=== PATIENT | female | born 1995 | race Caucasian/White ===

== ENCOUNTER → 2021-09-10 | Outpatient (CLI) | payer BC | END | disposition home or self-care (01) | LOC: LABWHC1 09:20 | PROVIDERS: ATTEND Obstetrics & Gynecology | DX: O20.0 Threatened abortion (principal); Z3A.00 Weeks of gestation of pregnancy not specified | CPT/HCPCS: 36415; 84702; 86850; 86900; 86901 ==

== ENCOUNTER → 2021-09-12 | Outpatient (CLI) | payer BC | END | disposition home or self-care (01) | LOC: LABWHC1 08:22 | PROVIDERS: ATTEND Obstetrics & Gynecology | DX: O20.0 Threatened abortion (principal); Z3A.00 Weeks of gestation of pregnancy not specified | CPT/HCPCS: 36415; 84702 ==

== ENCOUNTER → 2021-09-15 | Outpatient (CLI) | payer BC | END | disposition home or self-care (01) | LOC: LABWHC1 15:49 | PROVIDERS: ATTEND Obstetrics & Gynecology | DX: O02.1 Missed abortion (principal); Z3A.00 Weeks of gestation of pregnancy not specified | CPT/HCPCS: 36415; 84702 ==

== ENCOUNTER → 2021-12-08 | Outpatient (CLI) | payer BC ==
[2021-12-08 15:08] LABS: Basophils # (A) 0.03 X 10*3/uL (0.00-0.10); Basophils % (A) 0.4 %; Eosinophils # (A) 0.15 X 10*3/uL (0.04-0.35); Eosinophils % (A) 2.1 %; HGB 13.8 g/dL (12.0-15.0); Immature Grans, Automated 0.1 %; Lymphocytes # (A) 2.42 X 10*3/uL (0.90-5.00); Lymphocytes % (A) 34.6 %; MCH 28.5 pg (27.0-32.0); MCHC 32.9 g/dL (32.0-37.0); MCV 86.8 fL (80.0-97.0); Mean Platelet Volume 10.6 fL (9.5-12.2); Monocytes # (A) 0.45 X 10*3/uL (0.20-1.00); Monocytes % (A) 6.4 %; NRBC Per 100 WBC 0 /100 WBCS (0.0-0.0); Neutrophils # (A) 3.94 X 10*3/uL (1.80-7.70); Neutrophils % (A) 56.4 %; Platelet Count 285 X 10*3/uL (140-440); RBC 4.84 X 10*6/uL (4.10-5.20); RDW 12.2 % (11.5-14.5)
== END | disposition home or self-care (01) ==
LOC: LABPAT 10:42
PROVIDERS: ATTEND Obstetrics & Gynecology
DX: Z01.812 Encounter for preprocedural laboratory examination (principal); O02.1 Missed abortion; Z3A.00 Weeks of gestation of pregnancy not specified
CPT/HCPCS: 85025

== ENCOUNTER 2021-12-09 05:53 | Day surgery (SDC) | payer BC ==
[2021-12-05 09:59] VITALS: BMI 43.0
[~2021-12-09 05:53] MED LIST: DEXAMETHASONE SOD PHOSPHATE 4 MG/ML 1 ML VIAL IV ONE; LACTATED RINGERS 1,000 ML IV SCH; LIDOCAINE 1% (10MG/ML) FOR IV START INTRADERMA PRN; MIDAZOLAM 2 MG/2 ML VIAL IV PRN; ONDANSETRON 4 MG/2 ML VIAL IVP ONE; Pre Op ABX Message 1 EACH MISC MISCELLANE ONE
[2021-12-09] MEDS ORDERED: FAMOTIDINE 20 MG/2 ML VIAL IV ONE (06:43)
[2021-12-09] MEDS ORDERED: SCOPOLAMINE 1 MG/72 HR PATCH TRANSDERM ONE (06:45)
[2021-12-09] MEDS ORDERED: LIDOCAINE 2% INJ 20 MG/ML (2 ML VIAL) ONE (07:00)
[2021-12-09] MEDS ORDERED: MIDAZOLAM 2 MG/2 ML VIAL ONE (07:00)
[2021-12-09] MEDS ORDERED: SUCCINYLCHOLINE CHLORIDE 200 MG/10 ML VIAL IV ONE (07:00)
[2021-12-09] MEDS ORDERED: PROPOFOL 10 MG/ML 20 ML VIAL IV ONE (07:00)
[2021-12-09] MEDS ORDERED: fentaNYL (PF) 50 MCG/ML 2 ML AMP ONE (07:00)
[2021-12-09] MEDS ORDERED: KETOROLAC 15 MG/ML 1 ML VIAL ONE (07:00)
--- NOTE | 2021-12-09 07:36 | P.OP ---
Date of Procedure: 12/09/21 Preoperative Diagnosis: Missed AB at 7-4/7 weeks', blood type B positive Postoperative Diagnosis: Same Procedure(s) Performed: Suction dilatation and curettage Anesthesia: JONI Surgeon: Peyton Carlton Estimated Blood Loss (ml): 150 IV fluids (ml): 500 Urine output (ml): 75 Pathology: other (Uterine curettings, products of conception) Condition: stable Disposition: PACU Operative Findings: Uterus mid position, 8-10 weeks size, negative adnexa bilaterally. Description of Procedure: Patient is brought to the operating suite where a general anesthetic is administered without difficulty. She's placed in the dorsal lithotomy position, the cervix vagina and perineal bodies are all prepped and draped in the usual sterile fashion. The appropriate timeout is performed to assure proper patient and procedural identification. Examination under anesthesia reveals a midposition uterus 8-10 weeks size, negative adnexa bilaterally. Bladder is drained for approximately 75 mL of clear yellow urine. Weighted speculum was placed into the vagina. Anterior lip of the cervix is grasped with an Allis clamp. Uterus sounds to a depth of 10.5 cm. The cervix is gently and systematically dilated with Hanks dilators. A #8 curved curet is placed to the dome of the fundus and under appropriate suction pressures the uterus is thoroughly curettaged. A medium sharp curette is used and all 4 quadrants, no residual tissue was noted. The suction curette is passed once again and the uterus is felt to be completely evacuated. Instrumentation is removed from the vagina. All sponge needle and enhancement counts are correct. Patient is brought back to recovery room in very good condition with a pulse of 72, blood pressure 111/69. Toradol is given prior to leaving the operative suite. Patient will follow-up with me in the office in 2 weeks.
[2021-12-09 07:41] VITALS: TEMP 98
[2021-12-09] MEDS: HYDROmorphone 0.5 MG/0.5 ML SYRINGE IVP PRN ×2 (08:08→08:14)
[2021-12-09] MEDS ORDERED: LACTATED RINGERS 1,000 ML IV ONE (08:30)
[2021-12-09] MEDS ORDERED: MEPERIDINE 50 MG/ML SYRINGE IVP ONE (09:00)
[2021-12-09 09:33] VITALS: BP 115/82; PULSE 82; RESP 18
== END 2021-12-09 09:45 | disposition home or self-care (01) ==
LOC: OR 05:53
PROVIDERS: ATTEND Obstetrics & Gynecology
DX: O02.1 Missed abortion (principal); J45.909 Unspecified asthma, uncomplicated; K21.9 Gastro-esophageal reflux disease without esophagitis; Z88.3 Allergy status to other anti-infective agents; Z79.899 Other long term (current) drug therapy; Z3A.01 Less than 8 weeks gestation of pregnancy
CPT/HCPCS: 86900; 86901; 88305; 86850; 59820; J2250; J0330; J1100; J2175; J2405; J3010; J1885; J2704; J1170; J2001

== ENCOUNTER 2021-12-14 20:46 | Emergency (ER) | payer BC, OTHER ==
[2021-12-14] MEDS ORDERED: SODIUM CHLORIDE 0.9% 1,000 ML IV STA ×2 (21:02)
--- NOTE | 2021-12-14 21:25 | ED ---
General Adult HPI - General Chief complaint: Vaginal Bleeding Stated complaint: Post-op vaginal bleeding Time Seen by Provider: 12/14/21 21:00 Source: patient Mode of arrival: ambulatory - History of Present Illness Initial comments: Dictation was produced using exsulin dictation software. please excuse any grammatical, word or spelling errors. Chief Complaint: 26-year-old female presents with vaginal bleeding History of Present Illness: Is 26-year-old female she presents to emergency department for vaginal bleeding. Patient had a dilatation and curettage performed on December 09 for missed AB. Patient states that since then she's been having progressive vaginal bleeding. Patient states that she has soaked through 8 pads today. She had contact her barrel coater who requested that patient come to the emergency department for ultrasound, blood work and IV fluids. Patient denies any symptoms of anemia. Denies any chest pain shortness of breath or l ightheadedness. Denies any constitutional symptoms. Denies any pelvic pain. The ROS documented in this emergency department record has been reviewed and confirmed by me. Those systems with pertinent positive or negative responses have been documented in the HPI. All other systems are other negative and/or noncontributory. PHYSICAL EXAM: General Impression: Alert and oriented x3, not in acute distress HEENT: Normocephalic atraumatic, extra-ocular movements intact, pupils equal and reactive to light bilaterally, mucous membranes moist. Cardiovascular: Heart regular rate and rhythm Chest: Able to complete full sentences, no retractions, no tachypnea Abdomen: abdomen soft, non-tender, non-distended, no organomegaly Musculoskeletal: Pulses present and equal in all extremities, no peripheral edema Motor: no focal deficits noted Neurological: CN II-XII grossly intact, no focal motor or sensory deficits noted Skin: Intact with no visualized rashes Psych: Normal affect and mood ED course: 26-year-old female presents to the emergency Department with post D&C vaginal bleeding. She was instructed by her barrel coater to present to the emergency room for further evaluation. Vital signs upon arrival are within acceptable limits. Return evaluation obtained. No anemia. Ultrasound does not show any retained products of conception. Pelvic exam is unremarkable. Cervical os is closed without any signs of active bleeding. Case was rediscussed with Dr. Carlton who is patient's primary barrel coater the patient is amenable for discharge with outpatient follow-up. - Related Data Home Medications Medication Instructions Recorded Confirmed Famotidine 20 mg PO BID 12/05/21 12/14/21 Allergies Allergy/AdvReac Type Severity Reaction Status Date / Time azithromycin Allergy Rash/Hives Verified 12/14/21 22:01 Review of Systems ROS Statement: Those systems with pertinent positive or pertinent negative responses have been documented in the HPI. ROS Other: All systems not noted in ROS Statement are negative. Past Medical History Past Medical History: Asthma, GERD/Reflux Additional Past Medical History / Comment(s): missed AB,hx mult rt foot fx's History of Any Multi-Drug Resistant Organisms: None Reported Additional Past Surgical History / Comment(s): 5 rt foot surgeries-hardware removed Past Anesthesia/Blood Transfusion Reactions: Motion Sickness, Postoperative Nausea & Vomiting (PONV) Additional Past Anesthesia/Blood Transfusion Reaction / Comment(s): severe PONV Past Psychological History: No Psychological Hx Reported Smoking Status: Never smoker Past Alcohol Use History: None Reported Past Drug Use History: None Reported - Past Family History Mother Family Medical History: No Reported History Course Vital Signs 12/14/21 12/14/21 20:51 23:04 Temperature 98.9 F Pulse Rate 109 H 60 Respiratory 18 16 Rate Blood Pressure 130/83 112/72 O2 Sat by Pulse 96 97 Oximetry Medical Decision Making - Lab Data Result diagrams: 12/14/21 21:31 12/14/21 21:31 Lab Results 12/14/21 12/14/21 12/14/21 Range/Units 21:31 21:31 21:31 WBC 9.5 (3.8-10.6) k/uL RBC 4.84 (3.80-5.40) m/uL Hgb 14.0 (11.4-16.0) gm/dL Hct 42.3 (34.0-46.0) % MCV 87.4 (80.0-100.0) fL MCH 28.9 (25.0-35.0) pg MCHC 33.0 (31.0-37.0) g/dL RDW 12.3 (11.5-15.5) % Plt Count 320 (150-450) k/uL MPV 8.1 Neutrophils % 61 % Lymphocytes % 29 % Monocytes % 6 % Eosinophils % 2 % Basophils % 1 % Neutrophils # 5.8 (1.3-7.7) k/uL Lymphocytes # 2.8 (1.0-4.8) k/uL Monocytes # 0.5 (0-1.0) k/uL Eosinophils # 0.2 (0-0.7) k/uL Basophils # 0.1 (0-0.2) k/uL PT 10.3 (9.0-12.0) sec INR 0.9 (<1.2) APTT 24.1 (22.0-30.0) sec Sodium 140 (137-145) mmol/L Potassium 4.1 (3.5-5.1) mmol/L Chloride 107 (98-107) mmol/L Carbon Dioxide 22 (22-30) mmol/L Anion Gap 11 mmol/L BUN 12 (7-17) mg/dL Creatinine 0.81 (0.52-1.04) mg/dL Est GFR (CKD-EPI)AfAm >90 (>60 ml/min/1.73 sqM) Est GFR (CKD-EPI)NonAf >90 (>60 ml/min/1.73 sqM) Glucose 96 (74-99) mg/dL Calcium 9.6 (8.4-10.2) mg/dL Blood Type Blood Type Recheck Bld Type Recheck Status Antibody Screen Spec Expiration Date 12/14/21 Range/Units 21:31 WBC (3.8-10.6) k/uL RBC (3.80-5.40) m/uL Hgb (11.4-16.0) gm/dL Hct (34.0-46.0) % MCV (80.0-100.0) fL MCH (25.0-35.0) pg MCHC (31.0-37.0) g/dL RDW (11.5-15.5) % Plt Count (150-450) k/uL MPV Neutrophils % % Lymphocytes % % Monocytes % % Eosinophils % % Basophils % % Neutrophils # (1.3-7.7) k/uL Lymphocytes # (1.0-4.8) k/uL Monocytes # (0-1.0) k/uL Eosinophils # (0-0.7) k/uL Basophils # (0-0.2) k/uL PT (9.0-12.0) sec INR (<1.2) APTT (22.0-30.0) sec Sodium (137-145) mmol/L Potassium (3.5-5.1) mmol/L Chloride (98-107) mmol/L Carbon Dioxide (22-30) mmol/L Anion Gap mmol/L BUN (7-17) mg/dL Creatinine (0.52-1.04) mg/dL Est GFR (CKD-EPI)AfAm (>60 ml/min/1.73 sqM) Est GFR (CKD-EPI)NonAf (>60 ml/min/1.73 sqM) Glucose (74-99) mg/dL Calcium (8.4-10.2) mg/dL Blood Type B Positive Blood Type Recheck B Pos Bld Type Recheck Status No Antibody Screen NEGATIVE Spec Expiration Date 12/17/20212330 Disposition Clinical Impression: Vaginal bleeding Disposition: HOME SELF-CARE Condition: Good Instructions (If sedation given, give patient instructions): Dilation and Curettage (DC) Is patient prescribed a controlled substance at d/c from ED?: No Referrals: Peyton Carlton MD [STAFF PHYSICIAN] - 1-2 days Time of Disposition: 23:47
[2021-12-14 22:05] LABS: Basophils # (A) 0.1 k/uL (0-0.2); Basophils % (A) 1 %; Eosinophils # (A) 0.2 k/uL (0-0.7); Eosinophils % (A) 2 %; HCT 42.3 % (34.0-46.0); Lymphocytes # (A) 2.8 k/uL (1.0-4.8); Lymphocytes % (A) 29 %; MCH 28.9 pg (25.0-35.0); MCV 87.4 fL (80.0-100.0); Mean Platelet Volume 8.1; Monocytes # (A) 0.5 k/uL (0-1.0); Monocytes % (A) 6 %; Neutrophils # (A) 5.8 k/uL (1.3-7.7); Neutrophils % (A) 61 %; Platelet Count 320 k/uL (150-450); RBC 4.84 m/uL (3.80-5.40); RDW 12.3 % (11.5-15.5); WBC 9.5 k/uL (3.8-10.6)
[2021-12-14 22:28] LABS: INR 0.9 (<1.2); Partial Thromboplastin Time 24.1 sec (22.0-30.0); Prothrombin Time 10.3 sec (9.0-12.0)
[2021-12-14 22:35] LABS: African American GFR (CKD) >90 (>60 ml/min/1.73 sqM); Anion Gap 11 mmol/L; Blood Urea Nitrogen 12 mg/dL (7-17); Calcium 9.6 mg/dL (8.4-10.2); Carbon Dioxide 22 mmol/L (22-30); Chloride 107 mmol/L (98-107); Glucose 96 mg/dL (74-99); Non-African American GFR(CKD) >90 (>60 ml/min/1.73 sqM); Potassium 4.1 mmol/L (3.5-5.1); Sodium 140 mmol/L (137-145)
[2021-12-14 23:05] VITALS: RESP 16
--- NOTE | 2021-12-14 23:27 | US ---
EXAMINATION TYPE: US transvaginal DATE OF EXAM: 12/14/2021 COMPARISON: NONE CLINICAL HISTORY: vaginal bleeding. Pt states heavy vaginal bleeding s/p D&C from miscarriage at 7 we eks TECHNIQUE: Transvaginal (TV). Transvaginal sonographic images of the pelvis were acquired. Date of LMP: Unknown EXAM MEASUREMENTS: Uterus: 6.9 x 4.1 x 5.3 cm Endometrial Stripe: 0.9 cm Right Ovary: 3.1 x 2.3 x 2.1 cm Left Ovary: 3.4 x 1.6 x 2.2 cm 1. Uterus: Anteverted wnl 2. Endometrium: wnl 3. Right Ovary: wnl 4. Left Ovary: wnl Spectral, color and waveform doppler imaging shows good arterial and venous flow within the ovaries ; there is no evidence for ovarian torsion. 5. Bilateral Adnexa: wnl 6. Posterior cul-de-sac: wnl IMPRESSION: No endometrial thickening. No adnexal mass or free fluid. No evidence of ovarian torsion.
[2021-12-15 00:45] VITALS: BP 116/80; PULSE 78; TEMP 98.7
== END 2021-12-15 00:25 | disposition home or self-care (01) ==
LOC: EC 20:46
DX: N93.9 Abnormal uterine and vaginal bleeding, unspecified (principal); J45.909 Unspecified asthma, uncomplicated; K21.9 Gastro-esophageal reflux disease without esophagitis; Z88.1 Allergy status to other antibiotic agents; Z79.899 Other long term (current) drug therapy
CPT/HCPCS: 36415; 76830; 80048; 85025; 85610; 85730; 86850; 86900; 86901; 93975; 96360; 99284

== ENCOUNTER 2022-05-29 09:36 | Day surgery (SDC) | payer BC, OTHER ==
[~2022-05-29 09:36] MED LIST changes: +HYDROmorphone 0.5 MG/0.5 ML SYRINGE IVP PRN; -LIDOCAINE 1% (10MG/ML) FOR IV START INTRADERMA PRN; +SCOPOLAMINE 1 MG/72 HR PATCH TRANSDERM ONE
[2022-05-29] MEDS ORDERED: LACTATED RINGERS 1,000 ML IV ONE (09:56)
[2022-05-29] MEDS ORDERED: fentaNYL (PF) 50 MCG/1 ML VIAL IVP ONE (10:33)
--- NOTE | 2022-05-29 10:50 | P.ANPRN ---
Procedure Note - Anesthesia - Nerve Block Performed Right Popliteal Single Time Out Performed: Yes Date of Procedure: 05/29/22 Procedure Start Time: 10:33 Procedure Stop Time: 10:38 Location of Patient: PreOp Indication: Acute Post-Operative Pain, Requested by Surgeon Sedation Type: Sedate with meaningful contact maintained Preparation: Sterile Prep Position: Supine Needle Types: Pajunk Needle Gauge: 21 Ultrasound used to visualize needle placement: Yes Ultrasound used to observe medication spread: Yes Injectate: 0.5% Ropivacaine (see comment for volume) (0.25%ropiv 20 ml) Blood Aspirated: No Pain Paresthesia on Injection Noted: No Resistance on Injection: Normal Image Stored and Saved: Yes Events: Uneventful and Well Tolerated
--- NOTE | 2022-05-29 10:53 | P.ANPRN ---
Procedure Note - Anesthesia - Nerve Block Performed Right Saphenous Nerve Block Single Date of Procedure: 05/29/22 Procedure Start Time: 10:39 Procedure Stop Time: 10:43 Location of Patient: PreOp Indication: Acute Post-Operative Pain, Requested by Surgeon Sedation Type: Sedate with meaningful contact maintained Preparation: Sterile Prep Position: Supine Needle Types: Pajunk Needle Gauge: 21 Ultrasound used to visualize needle placement: Yes Ultrasound used to observe medication spread: Yes Injectate: 0.5% Ropivacaine (see comment for volume) (0.25 % ropiv 20 ml) Blood Aspirated: No Pain Paresthesia on Injection Noted: No Resistance on Injection: Normal Image Stored and Saved: Yes Events: Uneventful and Well Tolerated
[2022-05-29] MEDS ORDERED: SUCCINYLCHOLINE CHLORIDE 200 MG/10 ML VIAL IV ONE (11:53)
[2022-05-29] MEDS ORDERED: ROPIVACAINE 5 MG/ML 30 ML VIAL ONE (11:53)
[2022-05-29] MEDS ORDERED: PROPOFOL 10 MG/ML 20 ML VIAL IV ONE (11:53)
[2022-05-29] MEDS ORDERED: LIDOCAINE 2% INJ 20 MG/ML (2 ML VIAL) ONE (11:53)
[2022-05-29] MEDS ORDERED: fentaNYL (PF) 50 MCG/ML 2 ML AMP ONE (11:53)
[2022-05-29] MEDS ORDERED: MIDAZOLAM 2 MG/2 ML VIAL ONE (11:53)
[2022-05-29 13:12] VITALS: TEMP 96.8
[2022-05-29 14:07] VITALS: RESP 98
[2022-05-29 14:27] VITALS: BP 117/76; PULSE 70
--- NOTE | 2022-06-02 10:06 | OP ---
OPERATIVE REPORT PREOPERATIVE DIAGNOSES: 1. Right ankle instability. 2. Injury to peroneal tendon, right ankle. POSTOPERATIVE DIAGNOSES: 1. Right ankle instability. 2. Injury to peroneal tendon, right ankle. PROCEDURES PERFORMED: 1. Secondary repair of right lateral ankle ligaments. 2. Secondary repair of flexor tendon, right ankle. ANESTHESIA: General with preop nerve block. HEMOSTASIS: Right calf tourniquet at 250 mmHg. ESTIMATED BLOOD LOSS: Minimal. MATERIALS: One Arthrex internal brace and 2 Arthrex FiberTak anchors. INJECTABLES: None. SPECIMENS: None. COMPLICATIONS: None. DESCRIPTION OF PROCEDURE: Prior to the patient being brought to the operating room, Anesthesia administered nerve block in the right lower extremity. The patient was then brought in to the operating room and placed on table in the supine position. Time-out was taken to confirm correct patient identifiers, correct laterality of surgery, and correct procedure. Once the staff in the room were in agreement with the time-out, the patient was induced and placed under general anesthesia. A well-padded tourniquet was placed on the right calf and a wedge underneath the right hip to internally rotate the right leg and then the right leg was prepped and draped in the usual manner. The right leg was exsanguinated and the tourniquet inflated to 250 mmHg. Attention directed over the lateral ankle where a linear incision was made over the midline of the lateral malleolus, was deepened down to the subcutaneous tissue careful to identify avoiding and retracting any neurovascular structures and cauterize any bleeding vessels. Blunt dissection was then performed through the subcutaneous layer, both anterior and posterior to the lateral malleolus for the exposure of the 2 surgical sites. The peroneal tendon sheath was incised just posterior to the lateral malleolus to an area near the anterior process of the calcaneus. The peroneal tendons were delivered into the surgical field. The peroneus longus tendon was visually inspected and found to be within normal limits. However, the peroneus brevis appeared to have a split longitudinal tear. The tendon was flat within the fibular groove. The peroneus brevis tendon was delivered in the surgical field. The paratenon was stripped on the underside of the tendon and all abnormal tendon tissue was sharply debrided. Once completed, 2-0 Vicryl was utilized to re-tubularize the peroneus brevis tendon. Once completed, both tendons were placed back in the fibular groove and the ankle taken through range of motion. Both tendons slid smoothly through the area without any catching or clicking. The wound was then thoroughly irrigated with antibiotic saline. The peroneal retinaculum was then sewn with [address] a [address] to secure the peroneal tendons in the fibular groove and the rest of peroneal tendon sheath was closed with 0 Vicryl. Then, attention was directed to the anterior lateral ankle where the lateral ankle ligaments were incised off the anterior surface of the lateral malleolus. A rongeur was used to remove the cortical bone on the anterior surface of the lateral malleolus to help facilitate the ligament re-adhesion upon repair. The roughened edges of bone smoothed with a rasp with the ankle in neutral position. The capsule was palpated over the talar body just anterior to the articular surface and near the junction of the neck. A small stab incision was made through the tissue and then the drill hole for the 4.75 anchor was then made into the talar body utilizing technique to avoid the subtalar and ankle joints. The hole was tapped and the anchor inserted and advanced down to proper depth. The regulator pin inserter was removed and the suture set aside. The same drill bit was used to create the canal in the lateral malleolus with a 3.5 mm anchor. Then, the spray pilot holes for the FiberTak anchors were made, 1 inferior, 1 superior to the 3.4 mm drill hole. The anchors were inserted and impacted down to proper depth. The inserters were removed and then the wound was irrigated thoroughly with antibiotic saline. The suture on the FiberTak anchors were then used to capture the distal ligamentous and capsular structures of the ankle and then were tied down to the lateral malleolus while holding the ankle maximally everted and dorsiflexed. Once that was completed, the 2 arms of the suture on the 4.75 anchor were then placed through the 3.5 mm anchor. All slack was taken out of the suture and the implant aligned with a drill hole in the lateral malleolus. Then, utilizing proper tension and techniques, the anchor and suture were inserted into the drill hole and the anchor advanced down to proper depth. At that point, the ankle was tested for stability, which indicated the anterior drawer and inversion stress were negative. The FiberTak suture was then used to sew the periosteal soft tissue flap over the repair site in a [id number] fashion. All suture was then cut and the wound thoroughly irrigated with antibiotic saline. Subcutaneous closure was done with 4-0 Monocryl, skin closure done with 3-0 Stratafix in a running subcuticular manner. Dermal glue was applied and allowed to dry and then covered with Steri-Strips an Arthrex JumpStart dressing and then a dry sterile dressing. The tourniquet was released and capillary refill returned to all digits on the right foot. The patient then placed in a well-padded, well-molded posterior mold/sugar-tong splint with the ankle held in neutral position until dry. Then, anesthesia was reversed and the patient was taken to recovery with vital signs stable. MMODL / CARLOSN: [id number] /
== END 2022-05-29 14:43 | disposition home or self-care (01) ==
LOC: OR 09:36
PROVIDERS: ATTEND Podiatrist
DX: M25.371 Other instability, right ankle (principal); G89.29 Other chronic pain; S86.311A Strain of muscle(s) and tendon(s) of peroneal muscle group at lower leg level, right leg, initial encounter; J45.909 Unspecified asthma, uncomplicated; E66.9 Obesity, unspecified; Z68.35 Body mass index [BMI] 35.0-35.9, adult; Z79.899 Other long term (current) drug therapy; Z79.51 Long term (current) use of inhaled steroids; Z88.8 Allergy status to other drugs, medicaments and biological substances; Z98.890 Other specified postprocedural states
CPT/HCPCS: 64450; 64445; 76942; 27695; 28200; C1713 ×2; J2250; J0330; J1100; J2405; J3010 ×2; J2795; J2704; J2001

== ENCOUNTER → 2023-04-07 | Outpatient (CLI) | payer BC, OTHER | END | disposition home or self-care (01) | LOC: LABWHC1 07:41 | PROVIDERS: ATTEND Obstetrics & Gynecology Reproductive Endocrinology | DX: Z32.00 Encounter for pregnancy test, result unknown (principal) | CPT/HCPCS: 36415; 84144 ==

== ENCOUNTER → 2023-04-14 | Outpatient (CLI) | payer BC, OTHER | END | disposition home or self-care (01) | LOC: LABWHC1 06:59 | PROVIDERS: ATTEND Obstetrics & Gynecology Reproductive Endocrinology | DX: Z32.00 Encounter for pregnancy test, result unknown (principal) | CPT/HCPCS: 36415; 84144; 84702 ==

== ENCOUNTER → 2024-02-21 | Outpatient (CLI) | payer OTHER ==
--- NOTE | 2024-02-21 11:26 | XR ---
EXAMINATION TYPE: XR thoracic spine complete DATE OF EXAM: 02/21/2024 11:22 AM INDICATION: Patient age:Female; 28 years old; Reason for study: S23.3XXA SPRAIN OF LIGAMENTS OF THORACIC SS39.012A; [facility]. COMPARISON: None TECHNIQUE: 3 views of the thoracic spine in frontal, lateral, and swimmer's projections. FINDINGS: No evidence of acute fracture. There is no evidence of disk space narrowing or loss of vertebral bod y height. There is normal alignment of the thoracic vertebral bodies. IMPRESSION: No acute osseous pathology. [facility], , 02/21/2024 11:24 AM
--- NOTE | 2024-02-21 11:27 | XR ---
EXAMINATION TYPE: XR lumbar spine 2 or 3V DATE OF EXAM: 02/21/2024 CLINICAL HISTORY: pain TECHNIQUE: Three views of the lumbar spine are submitted. COMPARISON: None. FINDINGS: There are 5 lumbar type vertebral bodies identified. The lumbar spine shows satisfactory alignment w ithout evidence of acute fracture or dislocation. Straightening of the normal lordosis. Vertebral bod y heights are within normal limits. Disc spaces are within normal limits. The overlying soft tissu e appears unremarkable. IMPRESSION: No acute fracture or dislocation is seen in the lumbar spine. [facility], , 02/21/2024 11:25 AM
== END | disposition home or self-care (01) ==
LOC: LABWHC1 10:45
PROVIDERS: ATTEND Emergency Medicine
CPT/HCPCS: 72072; 72100; 81025

== ENCOUNTER → 2024-02-24 | Outpatient (CLI) | payer OTHER ==
--- NOTE | 2024-02-24 14:56 | XR ---
EXAMINATION TYPE: XR cervical spine comp DATE OF EXAM: 02/24/2024 2:21 PM INDICATION: Patient age:Female; 28 years old; Reason for study: S23.3XXD; S39.012D, M54.2; [facility]. COMPARISON: None TECHNIQUE: The cervical spine was imaged in frontal, bilateral oblique, lateral, and odontoid project ions. FINDINGS: The osseous structures show no evidence of an acute fracture. Slight reversal of the normal cervical lordosis. The intervertebral disk spaces are preserved. Pedicles are intact. Soft tissues are withi n normal limits. The odontoid appears intact. IMPRESSION: 1. No fracture or dislocation. 2. No significant degenerative disc disease. [facility], , 02/24/2024 2:30 PM
--- NOTE | 2024-02-24 16:33 | CT ---
EXAMINATION TYPE: CT thor lumbar spine wo con CT DLP: 2138.2 mGycm, Automated exposure control for dose reduction was used. DATE OF EXAM: 02/24/2024 2:39 PM CLINICAL INDICATION:Female, 28 years old with history of S23.3XXD; S39.012D, M54.2; Patient c/o back pain x 1 week. 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 Back pain since . COMPARISON: Thoracolumbar spine radiograph 02/21/2024 TECHNIQUE: Axial images of the thoracic and lumbar spine were obtained without contrast. Coronal and sagittal reformats were performed. CT Contrast: Contrast used: none. Oral contrast used: none. FINDINGS: Thoracic: The thoracic vertebral bodies have preserved heights and alignment. Intervertebral discs and osseou s structures have normal appearance. I do not see any evidence of extradural defects nor significant spinal canal narrowing at any thoraci c vertebral body level. Lumbar: Alignment: There are 5 lumbar type vertebral bodies within normal alignment. Bone: No evidence of fracture is identified. Discs: T12-L1: No spinal canal or neural foraminal stenosis is identified. L1-L2: Eccentric left disc bulge causing at least mild to moderate central canal stenosis (series 3, image 105). At least moderate left neural foraminal stenosis. L2-L3: No spinal canal or neural foraminal stenosis is identified. L3-L4: No spinal canal or neural foraminal stenosis is identified. L4-L5: No spinal canal or neural foraminal stenosis is identified. L5-S1: No spinal canal or neural foraminal stenosis is identified. Other: None IMPRESSION: 1. No evidence of fracture of the thoracolumbar spine. 2. L1-L2 disc bulge causing at least [id number]-ni-[id number] central canal stenosis and at least moderate le ft neural foraminal stenosis. Further evaluation with MRI lumbar spine is recommended. [facility], , 02/24/2024 4:31 PM
== END | disposition home or self-care (01) ==
LOC: RADCTMAIN 13:59
PROVIDERS: ATTEND Emergency Medicine
CPT/HCPCS: 72050; 72128; 72131

== ENCOUNTER → 2024-03-01 | Outpatient (CLI) | payer OTHER ==
--- NOTE | 2024-03-01 09:13 | MR ---
EXAMINATION TYPE: MR tspine/lspine wo con DATE OF EXAM: 03/01/2024 COMPARISON: CT thoracolumbar spine 02/24/2024, thoracic and lumbar spine radiographs 02/21/2024 HISTORY: Mid to low back pain due to pulling injury TECHNIQUE: Multiplanar, multisequence imaging of the thoracolumbar spine is performed without IV cont rast. FINDINGS: The thoracic vertebral bodies have preserved heights and alignment. The osseous structure have normal signal intensity. Thoracic spinal cord appears unremarkable. There is no evidence of extradural defe cts or central spinal canal narrowing at any thoracic vertebral body level. Intervertebral discs dem onstrate normal signal intensity. No abnormal STIR signal within the soft tissues. The lumbar vertebral bodies do have preserved heights and alignment. The conus medullaris and the dis george spinal cord do appear unremarkable with regards to their signal intensity and morphology. No abno rmal STIR signal within the soft tissues. T12-L1: No significant disc pathology is identified. The spinal canal and neural foramen are patent L1-L2: Disc height loss with eccentric left disc bulge and annular fissure (series 1401, image 23 an d series 1101, image 10). This extends into the left subarticular zone with mild effacement of the an terior left thecal sac. Mild to moderate left neural foraminal stenosis. L2-L3: No significant disc pathology is identified. The spinal canal and neural foramen are patent. L3-L4: No significant disc pathology is identified. The spinal canal and neural foramen are patent. L4-L5: No significant disc pathology is identified. The spinal canal and neural foramen are patent L5-S1: No significant disc pathology is identified. The spinal canal and neural foramen are patent Other significant findings: None. IMPRESSION: L1-L2 eccentric disc bulge with annular fissure resulting in mild effacement of the anterior left lat eral aspect of the thecal sac with mild to moderate left neural foraminal stenosis. Otherwise no othe r level of significant stenosis or disc pathology. [facility], , 03/01/2024 9:11 AM
== END | disposition home or self-care (01) ==
LOC: RADMRIMAIN 06:01
PROVIDERS: ATTEND Emergency Medicine
CPT/HCPCS: 72146; 72148

== ENCOUNTER 2024-11-26 16:11 | Emergency (ER) | payer BC, OTHER ==
[2024-11-26 16:17] VITALS: RESP 18; TEMP 97.8
[2024-11-26] MEDS: SODIUM CHLORIDE 0.9% 1,000 ML IV ONE (16:53)
[2024-11-26] MEDS: KETOROLAC 15 MG/ML 1 ML VIAL IVP STA (16:54)
[2024-11-26 16:58] LABS: Basophils # (A) 0.06 10*3/uL (0.00-0.10); Basophils % (A) 0.5 %; Eosinophils # (A) 0.22 10*3/uL (0.04-0.35); Eosinophils % (A) 1.9 %; HCT 41.5 % (37.2-46.3); HGB 14.5 g/dL (12.0-15.0); Lymphocytes # (A) 2.94 10*3/uL (0.90-5.00); Lymphocytes % (A) 26.0 %; MCH 30.3 pg (27.0-32.0); MCHC 34.9 g/dL (32.0-37.0); MCV 86.6 fL (80.0-97.0); Monocytes # (A) 0.73 10*3/uL (0.20-1.00); Monocytes % (A) 6.5 %; Neutrophils # (A) 7.33 10*3/uL (1.80-7.70); Neutrophils % (A) 64.9 %; Platelet Count 285 10*3/uL (140-440); RBC 4.79 10*6/uL (4.10-5.20); RDW 12.1 % (11.5-14.5); WBC 11.30 10*3/uL (4.50-10.00)
--- NOTE | 2024-11-26 17:10 | ED ---
Abdominal Pain HPI - General Chief Complaint: Abdominal Pain Stated Complaint: Abd pain Time Seen by Provider: 11/26/24 16:15 Source: patient, RN notes reviewed Mode of arrival: ambulatory Limitations: no limitations - History of Present Illness Initial Comments: 29-year-old female presents emergency department with chief complaint of right- sided abdominal pain. Patient states has been worsening the last several days. Patient states symptoms are worsened with food states it is more in her lower abdomen. Patient denies any chance of denies any dysuria no vaginal bleeding states her menstrual cycles approximately 3 weeks ago. Denies fevers or chills no chest pain or shortness of breath. She has had prior D&C no other abdominal surgeries - Related Data Home Medications Medication Instructions Recorded Confirmed Famotidine 20 mg PO BID 12/05/21 05/29/22 Previous Rx's Medication Instructions Recorded HYDROcodone/APAP 5-325MG [[place] 1 tab PO Q6HR PRN #28 tab 05/29/22 5-325] Dicyclomine [Bentyl] 20 mg PO TID #30 tablet 11/26/24 Allergies Allergy/AdvReac Type Severity Reaction Status Date / Time azithromycin Allergy Rash/Hives Verified 11/26/24 16:14 Review of Systems ROS Statement: Those systems with pertinent positive or pertinent negative responses have been documented in the HPI. ROS Other: All systems not noted in ROS Statement are negative. Past Medical History Past Medical History: Asthma, GERD/Reflux Additional Past Medical History / Comment(s): missed AB,hx mult lft foot fx's History of Any Multi-Drug Resistant Organisms: None Reported Past Surgical History: Orthopedic Surgery Additional Past Surgical History / Comment(s): 5 lft foot surgeries-hardware removed d & c recently Past Anesthesia/Blood Transfusion Reactions: Motion Sickness, Postoperative Nausea & Vomiting (PONV) Additional Past Anesthesia/Blood Transfusion Reaction / Comment(s): severe PONV Past Psychological History: No Psychological Hx Reported Smoking Status: Never smoker - Past Family History Mother Family Medical History: No Reported History General Exam Limitations: no limitations General appearance: alert, in no apparent distress Head exam: Present: atraumatic, normocephalic, normal inspection Eye exam: Present: normal appearance, PERRL, EOMI. Absent: scleral icterus, conjunctival injection, periorbital swelling ENT exam: Present: normal exam, mucous membranes moist Neck exam: Present: normal inspection, full ROM. Absent: tenderness, meningismus, lymphadenopathy Respiratory exam: Present: normal lung sounds bilaterally. Absent: respiratory distress, wheezes, rales, rhonchi, stridor Cardiovascular Exam: Present: regular rate, normal rhythm, normal heart sounds. Absent: systolic murmur, diastolic murmur, rubs, gallop, clicks GI/Abdominal exam: Present: soft, tenderness, normal bowel sounds. Absent: distended, guarding, rebound, rigid Back exam: Absent: CVA tenderness (R), CVA tenderness (L) Neurological exam: Present: alert, oriented X3 Course Vital Signs 11/26/24 11/26/24 16:14 18:30 Temperature 97.8 F Pulse Rate 79 70 Respiratory 18 18 Rate Blood Pressure 168/85 125/66 O2 Sat by Pulse 95 98 Oximetry Medical Decision Making - Medical Decision Making Was pt. sent in by a medical professional or institution (, PA, CHAIN TESTING MACHINE OPERATOR, urgent care, hospital, or senior living...) When possible be specific @ -No Did you speak to anyone other than the patient for history (EMS, parent, family, police, friend...)? What history was obtained from this source @ -No Did you review nursing and triage notes (agree or disagree)? Why? @ -I reviewed and agree with nursing and triage notes Were old charts reviewed (outside hosp., previous admission, EMS record, old EKG, old radiological studies, urgent care reports/EKG's, senior living records)? Report findings @ -No old charts were reviewed Differential Diagnosis (chest pain, altered mental status, abdominal pain women, abdominal pain men, vaginal bleeding, weakness, fever, dyspnea, syncope, headache, dizziness, GI bleed, back pain, seizure, CVA, palpatations, mental health, musculoskeletal)? @ -Differential Abdominal Pain Women: Appendicitis, Cholecystitis, diverticulosis, ischemic bowel, pancreatitis, hepatitis, UTI, gastroenteritis, AAA, incarcerated hernia, bowel obstruction, constipation, inflammatory bowel, hepatitis, peptic ulcer disease, splenic infarction, perforated viscus, vulvitis, ovarian torsion, PID, kidney stone, placenta abruption, this is not meant to be an all-inclusive list EKG interpreted by me (3pts min.). @ -None X-rays interpreted by me (1pt min.). @ -None done CT interpreted by me (1pt min.). @ -CT abdomen pelvis showing no acute intra-abdominal process. Fatty liver disease. U/S interpreted by me (1pt. min.). @ -None done What testing was considered but not performed or refused? (CT, X-rays, U/S, labs)? Why? @ -None What meds were considered but not given or refused? Why? @ -None Did you discuss the management of the patient with other professionals (professionals i.e. , PA, CHAIN TESTING MACHINE OPERATOR, lab, RT, psych nurse, nephrology social worker, cardiovascular specialist, teacher, ground intelligence officer, bilingual case manager)? Give summary @ -No Was smoking cessation discussed for >3mins.? @ -No Was critical care preformed (if so, how long)? @ -No Were there social determinants of health that impacted care today? How? (Homelessness, low income, unemployed, alcoholism, drug addiction, transp ortation, low edu. Level, literacy, decrease access to med. care, [facility], rehab)? @ -No Was there de-escalation of care discussed even if they declined (Discuss DNR or withdrawal of care, Hospice)? DNR status @ -No What co-morbidities impacted this encounter? (DM, HTN, Smoking, COPD, CAD, Cancer, CVA, ARF, Chemo, Hep., AIDS, mental health diagnosis, sleep apnea, morbid obesity)? @ -None Was patient admitted / discharged? Hospital course, mention meds given and route, prescriptions, significant lab abnormalities, going to OR and other pertinent info. @ -Discharge patient presented for abdominal pain. Workup including labs and CT unremarkable. Patient will follow-up patient surgeon. Return parameters tomasz. Undiagnosed new problem with uncertain prognosis? @ -No Drug Therapy requiring intensive monitoring for toxicity (Heparin, Nitro, Insulin, Cardizem)? @ -No Were any procedures done? @ -No Diagnosis/symptom? @ -Abdominal pain Acute, or Chronic, or Acute on Chronic? @ -Acute Uncomplicated (without systemic symptoms) or Complicated (systemic symptoms)? @ -Complicated Side effects of treatment? @ -No Exacerbation, Progression, or Severe Exacerbation? @ -No Poses a threat to life or bodily function? How? (Chest pain, [place], [place], pneumonia, PE, COPD, DKA, ARF, appy, cholecystitis, CVA, Diverticulitis, Homicidal, Suicidal, threat to staff... and all critical care pts) @ -No - Lab Data Result diagrams: 11/26/24 16:51 11/26/24 16:51 Lab Results 11/26/24 11/26/24 11/26/24 Range/Units 16:51 16:51 16:51 WBC 11.30 H (4.50-10.00) 10*3/uL RBC 4.79 (4.10-5.20) 10*6/uL Hgb 14.5 (12.0-15.0) g/dL Hct 41.5 (37.2-46.3) % MCV 86.6 (80.0-97.0) fL MCH 30.3 (27.0-32.0) pg MCHC 34.9 (32.0-37.0) g/dL Plt Count 285 (140-440) 10*3/uL MPV 10.5 (9.5-12.2) fL Immature Gran % (Auto) 0.2 % Neutrophils % 64.9 % Lymphocytes % 26.0 % Monocytes % 6.5 % Eosinophils % 1.9 % Basophils % 0.5 % Immature Gran # 0.02 (0.00-0.04) 10*3/uL Neutrophils # 7.33 (1.80-7.70) 10*3/uL Lymphocytes # 2.94 (0.90-5.00) 10*3/uL Monocytes # 0.73 (0.20-1.00) 10*3/uL Eosinophils # 0.22 (0.04-0.35) 10*3/uL Basophils # 0.06 (0.00-0.10) 10*3/uL Sodium 141 (137-145) mmol/L Potassium 4.3 (3.5-5.1) mmol/L Chloride 107 (98-107) mmol/L Carbon Dioxide 26 (22-30) mmol/L Anion Gap 8 mmol/L BUN 12 (7-17) mg/dL Creatinine 0.64 (0.52-1.04) mg/dL Est GFR (CKD-EPI)AfAm >90 (>60 ml/min/1.73 sqM) Est GFR (CKD-EPI)NonAf >90 (>60 ml/min/1.73 sqM) Glucose 99 (74-99) mg/dL Plasma Lactic Acid Bran 1.1 (0.7-2.0) mmol/L Calcium 10.2 (8.4-10.2) mg/dL Total Bilirubin 0.4 (0.2-1.3) mg/dL AST 27 (14-36) U/L ALT 42 H (4-34) U/L Alkaline Phosphatase 76 (38-126) U/L Total Protein 6.8 (6.3-8.2) g/dL Albumin 4.3 (3.5-5.0) g/dL Lipase 181 (23-300) U/L Urine Color Urine Appearance (Clear) Urine pH (5.0-8.0) Ur Specific [place] (1.001-1.035) Urine Protein (Negative) Urine Glucose (UA) (Negative) Urine Ketones (Negative) Urine Blood (Negative) Urine Nitrite (Negative) Urine Bilirubin (Negative) Urine Urobilinogen (<2.0) mg/dL Ur Leukocyte Esterase (Negative) Urine HCG, Qual (Not Detectd) 11/26/24 11/26/24 Range/Units 17:45 17:45 WBC (4.50-10.00) 10*3/uL RBC (4.10-5.20) 10*6/uL Hgb (12.0-15.0) g/dL Hct (37.2-46.3) % MCV (80.0-97.0) fL MCH (27.0-32.0) pg MCHC (32.0-37.0) g/dL Plt Count (140-440) 10*3/uL MPV (9.5-12.2) fL Immature Gran % (Auto) % Neutrophils % % Lymphocytes % % Monocytes % % Eosinophils % % Basophils % % Immature Gran # (0.00-0.04) 10*3/uL Neutrophils # (1.80-7.70) 10*3/uL Lymphocytes # (0.90-5.00) 10*3/uL Monocytes # (0.20-1.00) 10*3/uL Eosinophils # (0.04-0.35) 10*3/uL Basophils # (0.00-0.10) 10*3/uL Sodium (137-145) mmol/L Potassium (3.5-5.1) mmol/L Chloride (98-107) mmol/L Carbon Dioxide (22-30) mmol/L Anion Gap mmol/L BUN (7-17) mg/dL Creatinine (0.52-1.04) mg/dL Est GFR (CKD-EPI)AfAm (>60 ml/min/1.73 sqM) Est GFR (CKD-EPI)NonAf (>60 ml/min/1.73 sqM) Glucose (74-99) mg/dL Plasma Lactic Acid Bran (0.7-2.0) mmol/L Calcium (8.4-10.2) mg/dL Total Bilirubin (0.2-1.3) mg/dL AST (14-36) U/L ALT (4-34) U/L Alkaline Phosphatase (38-126) U/L Total Protein (6.3-8.2) g/dL Albumin (3.5-5.0) g/dL Lipase (23-300) U/L Urine Color Colorless Urine Appearance Clear (Clear) Urine pH 6.5 (5.0-8.0) Ur Specific [place] 1.022 (1.001-1.035) Urine Protein Negative (Negative) Urine Glucose (UA) Negative (Negative) Urine Ketones Negative (Negative) Urine Blood Negative (Negative) Urine Nitrite Negative (Negative) Urine Bilirubin Negative (Negative) Urine Urobilinogen <2.0 (<2.0) mg/dL Ur Leukocyte Esterase Negative (Negative) Urine HCG, Qual Not Detected (Not Detectd) Disposition Clinical Impression: Abdominal pain Disposition: HOME SELF-CARE Condition: Stable Instructions (If sedation given, give patient instructions): Abdominal Pain (ED) Additional Instructions: Please return to the Emergency Department if symptoms worsen or any other concerns. Prescriptions: Dicyclomine [Bentyl] 20 mg PO TID #30 tablet Is patient prescribed a controlled substance at d/c from ED?: No Referrals: Dheeraj Silver DO [Primary Care Provider] - 1-2 days Jerod Kelly DO [Doctor of Osteopathic Medicine] - 1-2 days Time of Disposition: 18:48
[2024-11-26 17:19] LABS: ALT 42 U/L (4-34); AST 27 U/L (14-36); African American GFR (CKD) >90 (>60 ml/min/1.73 sqM); Albumin 4.3 g/dL (3.5-5.0); Alkaline Phosphatase 76 U/L (38-126); Anion Gap 8 mmol/L; Blood Urea Nitrogen 12 mg/dL (7-17); Calcium 10.2 mg/dL (8.4-10.2); Carbon Dioxide 26 mmol/L (22-30); Chloride 107 mmol/L (98-107); Glucose 99 mg/dL (74-99); Lipase 181 U/L (23-300); Non-African American GFR(CKD) >90 (>60 ml/min/1.73 sqM); Potassium 4.3 mmol/L (3.5-5.1); Sodium 141 mmol/L (137-145); Total Protein 6.8 g/dL (6.3-8.2)
[2024-11-26 18:01] LABS: Bilirubin,Urine Negative (Negative); Blood,Urine Negative (Negative); Color,Urine Colorless; Glucose,Urine (UA) Negative (Negative); Ketones,Urine Negative (Negative); Leukocyte Esterase,Urine Negative (Negative); Nitrite,Urine Negative (Negative); PH, Urine 6.5 (5.0-8.0); Protein,Urine Negative (Negative); Specific Gravity,Urine 1.022 (1.001-1.035); Urobilinogen,Urine <2.0 mg/dL (<2.0)
--- NOTE | 2024-11-26 18:35 | CT ---
EXAMINATION TYPE: CT abdomen pelvis w con DATE OF EXAM: 11/26/2024 6:28 PM COMPARISON: None. CLINICAL INDICATION: Female, 29 years old with history of abdominal pain right; RLQ abdominal pain TECHNIQUE: Axial CT abdomen pelvis w con;Sagittal and coronal reformats were created on a separate w orkstation. Contrast used:100ml mL of Isovue 300 with IV Contrast, (none if empty) Oral contrast used: without Oral Contrast (none if empty) CT DLP: 964.4 mGycm, Automated exposure control for dose reduction was used. FINDINGS: LOWER CHEST: Unremarkable ABDOMEN LIVER: Diffusely hypoattenuating parenchyma. GALLBLADDER AND BILE DUCTS: Unremarkable. PANCREAS: Unremarkable. SPLEEN: Unremarkable. ADRENAL GLANDS: Unremarkable. KIDNEYS AND URETERS: No evidence of hydronephrosis. The ureters are unremarkable. Limited evaluation for renal or ureteral calculi due to suboptimal timing of contrast bolus. PELVIS BLADDER: No evidence for wall thickening or mass given limitations of exam. REPRODUCTIVE: Unremarkable. ABDOMEN & PELVIS STOMACH AND BOWEL: Stomach and duodenum are unremarkable. No evidence of bowel obstruction. PERITONEUM/RETROPERITONEUM: No evidence of pneumoperitoneum or free fluid. VASCULATURE: No evidence of aortic aneurysm. MUSCULOSKELETAL: No acute osseous abnormalities LYMPH NODES: No gross evidence for lymphadenopathy. SOFT TISSUE/ABDOMINAL WALL: Unremarkable IMPRESSION: 1. No acute abnormality in the abdomen/pelvis or CT findings to explain reported symptoms. 2. Hepatic steatosis. [facility], , 11/26/2024 6:32 PM
[2024-11-26 18:36] VITALS: BP 125/66; PULSE 70
== END 2024-11-26 18:59 | disposition home or self-care (01) ==
LOC: EC 16:11
DX: R10.9 Unspecified abdominal pain (principal); Z88.1 Allergy status to other antibiotic agents
CPT/HCPCS: 36415; 80053; 83605; 83690; 85025; 81003; 81025; 74177; 99284; 96374; 96361 ×2; J1885; Q9967